=== PATIENT | male | born 2000 | race Caucasian/White ===

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

== ENCOUNTER 2018-09-20 20:06 | Emergency (ER) | payer OTHER, SELFPAY ==
[2018-09-20 20:10] VITALS: BP 122/82; PULSE 121; RESP 18; TEMP 36.8; O2SAT 96; BMI 20.3
--- NOTE | 2018-09-20 20:21 | XR_ITS ---
XR chest AP HISTORY: Posttraumatic pain ITS.REASON: syncope ORDERING PHYSICIAN: Delta Soares MD PATIENT AGE: 17 years COMPARISON: 03/29/2017 FINDINGS: The cardiomediastinal silhouette and pulmonary vascularity are within normal limits. Calcified granuloma is present in the left upper lobe medially. There is a nodular opacity also in the left upper lobe at the first interspace anteriorly measuring 5 mm which may represent a granuloma as well. No lobar consolidation or collapse. No acute bony findings. IMPRESSION: No acute findings
--- NOTE | 2018-09-20 20:21 | CT_ITS ---
CT head/brain wo con HISTORY: Blunt trauma with contusion or hematoma, headache, ITS.REASON: syncope ORDERING PHYSICIAN: Delta Soares MD PATIENT AGE: 17 years COMPARISON: None TECHNIQUE: Axial images were obtained. Brain and bone windows reviewed. All CT scans at the facility use one or more dose reduction, viz: automated exposure control, ma/kV adjustment per patient size (including targeted exams where dose is matched to indication, i.e. head), or iterative reconstruction technique. FINDINGS: No midline shift, mass effect, intracranial hemorrhage, hydrocephalus, or extra-axial fluid collection is evident. The calvarium has an unremarkable appearance. No mastoid effusion. No sinus air-fluid levels.. Mild soft tissue swelling in the frontal region extending toward the nasal bridge IMPRESSION: No acute intracranial findings.
--- NOTE | 2018-09-20 20:21 | XR_ITS ---
XR hip LT 2-3V w/pelvis HISTORY: ITS.REASON: pain ORDERING PHYSICIAN: Delta Soares MD PATIENT AGE: 17 years COMPARISON: None FINDINGS: No fracture or dislocation is evident. No significant degenerative change. No lytic or blastic change. Unremarkable soft tissues IMPRESSION: Negative hip
--- NOTE | 2018-09-20 20:30 | CT_ITS ---
CT CERVICAL SPINE WITHOUT CONTRAST CT RECONSTRUCTIONS HISTORY:Neck pain following injury, ORDERING PHYSICIAN: Delta Soares MD PATIENT AGE: 17 years COMPARISON: None Technique: All CT scans at the facility use one or more dose reduction, viz: automated exposure control, ma/kV adjustment per patient size (including targeted exams where dose is matched to indication, i.e. head), or iterative reconstruction technique PROCEDURE: Axial spiral CT scanning performed of the cervical spine beginning at the base of the skull and continuing to the upper T-spine. 3-D multiplanar reconstruction with 3-D manipulation of volumetric data set in image rendering was completed by the radiologist and/or technologist with the supervision of the radiologist on independent workstation. FINDINGS: No fracture nor subluxation is evident. Normal prevertebral soft tissues. Facets, neural foramen and vertebral bodies intact and unremarkable. Normal C1/C2 relationships. Apices of lungs are clear with no acute findings. IMPRESSION: Cervical spine intact with no fracture nor subluxation.
[2018-09-20 20:36] LABS: Microscopic, Urine URINE MICROSCOPIC (MICROSCOPIC)
[2018-09-20 20:41] LABS: Basophils # 0.1 K/mm3 (0-0.2); Basophils % 0.9 % (0.1-2.0); Eosinophils # 0.2 K/mm3 (0.0-0.4); Eosinophils % 1.9 % (0.1-12.0); Hematocrit 49.9 % (42.0-52.0); Hemoglobin 16.4 g/dL (14.1-18.0); Lymphocytes # 3.9 K/mm3 (0.7-4.5); Lymphocytes % 47.6 % (10-50); Mean Corpuscular HGB Conc 32.8 g/dL (31.8-35.4); Mean Corpuscular Hemoglobin 28.2 pg (27.0-31.2); Mean Corpuscular Volume 85.9 fl (80-94); Mean Platelet Volume 7.6 fl (7.4-10.4); Monocytes # 0.5 K/mm3 (0.1-1.0); Monocytes % 6.6 % (1.7-9.3); Neutrophils # 3.5 K/mm3 (1.8-7.8); Neutrophils % 43.1 % (37.0-80.0); Platelet Count 251 K/mm3 (142-424); Red Blood Count 5.81 M/mm3 (4.60-6.20); Red Cell Distribution Width 12.9 % (11.5-17.5); White Blood Count 8.1 K/mm3 (4.5-13.0)
[2018-09-20 20:48] LABS: Alanine Aminotransferase 23 U/L (12-78); Albumin Level 4.2 gm/dL (3.4-5.0); Albumin/Globulin Ratio 1.1 (1.1-1.8); Alkaline Phosphatase 131 U/L (46-116); Anion Gap 17.8 mEq/L (5-15); Aspartate Amino Transferase 16 U/L (15-37); Bilirubin,Total 0.5 mg/dL (0.2-1.0); Blood Urea Nitrogen 9 mg/dL (7-18); Calcium 9.2 mg/dL (8.5-10.1); Carbon Dioxide 25 mmol/L (21.0-32.0); Chloride 104 mmol/L (98-107); Creatine Kinase 96 U/L (39-308); Creatinine Clearance Estimated 130 mL/min (50-200); Creatinine,Serum 0.88 mg/dL (0.70-1.30); Estimated Glomerular Filt Rate 112 ml/min (>60); GFR (African American) 135 ML/MIN (>60); Globulin 3.7 gm/dl (1.3-3.2); Glucose 85 mg/dL (74-106); Potassium 3.8 mmoL/L (3.5-5.1); Sodium 143 mmol/L (136-145); Total Protein,Serum 7.9 gm/dL (6.4-8.2)
[2018-09-20 20:49] LABS: Amphetamine/Metha Screen,Urine Negative ng/mL (<1000); Barbiturates Screen,Urine Negative ng/mL (<200); Benzodiazepines Screen,Urine Negative ng/mL (<200); Cannabinoid Screen,Urine Negative ng/mL (<50); Cocaine Screen,Urine Negative ng/mL (<300); Methadone Screen,Urine Negative ng/mL (<300); Opiate Screen,Urine Negative ng/mL (<300); Phencyclidine Screen,Urine Negative ng/mL (<25)
[2018-09-20 20:56] LABS: Appearance,Urine CLEAR (Clear); Bilirubin,Urine Negative (Negative); Blood, Urine Negative (Negative); Color,Urine YELLOW (Yellow); Glucose,Urine (UA) Negative (Negative); Ketones,Urine Negative (Negative); Leukocyte Esterase,Urine Negative (Negative); Nitrate,Urine Negative (Negative); Protein,Urine Negative (Negative)
[2018-09-20 21:07] VITALS: BP 105/69; PULSE 108; RESP 17; O2SAT 98
[2018-09-20 21:22] LABS: Bacteria,Urine Trace /lpf; WBC,Urine Occasional #/hpf (0-3)
[2018-09-20 22:00] VITALS: BP 106/60; PULSE 85; O2SAT 97
[2018-09-20 23:17] VITALS: BP 110/76; PULSE 75; RESP 18; O2SAT 96
--- NOTE | 2018-09-20 23:26 | HMH.EDSYNC ---
ED Disposition Clinical Impression: Vasovagal syncope Disposition: Home, Self-Care Condition on Discharge: Good Instructions: DI for Syncope in Adults (Fainting) Additional Instructions: fluids and see pcp for follow up Referrals: Delta Soares MD [Primary Care Provider] - - Critical Care Critical Care Time: No Attestation: On 09/20/18, the high probability of a clinically significant, sudden or life threatening deterioration of the following system(s) required my full and direct attention, intervention and personal management. The time I documented below is in addition to time spent performing reported procedures but includes the following listed in this critical care notation. Medical Decision Making - Medical Records Medical records reviewed: Yes: I reviewed the patient's medical records. - Lalito Inquiry Pt receiving controlled substance: No Vital Signs: 09/20/18 20:10 09/20/18 21:07 09/20/18 22:00 Temperature 98.2 F Temperature Source Oral Pulse Rate [Right Brachial] 121 H 108 H 85 Respiratory Rate 18 17 Blood Pressure [Right Arm] 122/82 105/69 L 106/60 L Blood Pressure Mean [Right Arm] 95 81 75 Blood Pressure Source [Right Arm] Automatic Cuff Automatic Cuff Automatic Cuff Blood Pressure Position [Right Arm] Sitting Supine Supine 02 Sat by Pulse Oximetry 96 98 97 Oxygen Delivery Method Room Air Room Air Room Air 09/20/18 23:17 Temperature Temperature Source Pulse Rate [Right Brachial] 75 Respiratory Rate 18 Blood Pressure [Right Arm] 110/76 Blood Pressure Mean [Right Arm] 87 Blood Pressure Source [Right Arm] Automatic Cuff Blood Pressure Position [Right Arm] Sitting 02 Sat by Pulse Oximetry 96 Oxygen Delivery Method Room Air - Lab Data Lab results reviewed: Yes: I reviewed the patient's lab results. Lab Results 09/20/18 20:20: WBC 8.1, RBC 5.81, Hgb 16.4, Hct 49.9, MCV 85.9, MCH 28.2, MCHC 32.8, RDW 12.9, Plt Count 251, MPV 7.6, Neut % (Auto) 43.1, Lymph % (Auto) 47.6, [place] % (Auto) 6.6, Eos % (Auto) 1.9, Baso % (Auto) 0.9, Neut # (Auto) 3.5, Lymph # (Auto) 3.9, [place] # (Auto) 0.5, Eos # (Auto) 0.2, Baso # (Auto) 0.1 09/20/18 20:20: Sodium 143, Potassium 3.8, Chloride 104, Carbon Dioxide 25, Anion Gap 17.8 H, BUN 9, Creatinine 0.88, Estimated Creat Clear 130, Estimated GFR 112, Est GFR ( Amer) 135, Glucose 85, Calcium 9.2, Total Bilirubin 0.5, AST 16, ALT 23, Alkaline Phosphatase 131 H, Total Creatine Kinase 96, Total Protein 7.9, Albumin 4.2, Globulin 3.7 H, Albumin/Globulin Ratio 1.1 09/20/18 20:20: Urine Opiates Screen Negative, Urine Methadone Screen Negative, Ur Barbituates Screen Negative, Ur Phencyclidine Scrn Negative, Ur Amphetamines Screen Negative, U Benzodiazepines Scrn Negative, Urine Cocaine Screen Negative, U Marijuana (THC) Screen Negative 09/20/18 20:35: Urine Color Yellow, Urine Appearance Clear, Urine pH 6.0, Ur Specific [place] 1.020, Urine Protein Negative, Urine Glucose (UA) Negative, Urine Ketones Negative, Urine Blood Negative, Urine Nitrate Negative, Urine Bilirubin Negative, Urine Urobilinogen 1.0, Ur Leukocyte Esterase Negative, Urine WBC Occasional, Ur Squamous Epith Cells 10-20, Urine Bacteria Trace Result diagrams: 09/20/18 20:20 09/20/18 20:20 Orders (Tests/Meds): ED MEDICATIONS Generic Name Dose Route Start Last Admin Trade Name Freq PRN Reason Stop Dose Admin Sodium Chloride 1,000 mls @ 999 mls/hr 09/20/18 20:30 09/20/18 21:08 Sod Chlor 0.9% 1000ml Bag IV 09/20/18 21:30 999 mls/hr .[id number] NEY Administration Discontinued Medications Generic Name Dose Route Start Last Admin Trade Name Freq PRN Reason Stop Dose Admin Ketorolac Tromethamine 30 mg 09/20/18 20:24 09/20/18 21:08 Toradol 30mg/Ml Vial IV 09/20/18 20:25 30 mg ONCE ONE Administration ORDERS Category Date Time Status CT cervical spine wo con Stat Cat Scan 09/20/18 20:[address] head/brain wo con Stat Cat Scan 09/20/18 20:21 Taken XR
--- NOTE | 2018-09-20 23:30 | ED_ITS ---
ED Disposition Clinical Impression: Vasovagal syncope Disposition: Home, Self-Care Condition on Discharge: Good Instructions: DI for Syncope in Adults (Fainting) Additional Instructions: fluids and see pcp for follow up Referrals: Delta Soares MD [Primary Care Provider] - - Critical Care Critical Care Time: No Attestation: On 09/20/18, the high probability of a clinically significant, sudden or life threatening deterioration of the following system(s) required my full and direct attention, intervention and personal management. The time I documented below is in addition to time spent performing reported procedures but includes the follow ing listed in this critical care notation. Medical Decision Making - Medical Records Medical records reviewed: Yes: I reviewed the patient's medical records. - Lalito Inquiry Pt receiving controlled substance: No Vital Signs: 09/20/18 20:10 09/20/18 21:07 09/20/18 22:00 Temperature 98.2 F Temperature Source Oral Pulse Rate [Right Brachial] 121 H 108 H 85 Respiratory Rate 18 17 Blood Pressure [Right Arm] 122/82 105/69 L 106/60 L Blood Pressure Mean [Right Arm] 95 81 75 Blood Pressure Source [Right Arm] Automatic Cuff Automatic Cuff Automatic Cuff Blood Pressure Position [Right Arm] Sitting Supine Supine 02 Sat by Pulse Oximetry 96 98 97 Oxygen Delivery Method Room Air Room Air Room Air 09/20/18 23:17 Temperature Temperature Source Pulse Rate [Right Brachial] 75 Respiratory Rate 18 Blood Pressure [Right Arm] 110/76 Blood Pressure Mean [Right Arm] 87 Blood Pressure Source [Right Arm] Automatic Cuff Blood Pressure Position [Right Arm] Sitting 02 Sat by Pulse Oximetry 96 Oxygen Delivery Method Room Air - Lab Data Lab results reviewed: Yes: I reviewed the patient's lab results. Lab Results 09/20/18 20:20: WBC 8.1, RBC 5.81, Hgb 16.4, Hct 49.9, MCV 85.9, MCH 28.2, MCHC 32.8, RDW 12.9, Plt Count 251, MPV 7.6, Neut % (Auto) 43.1, Lymph % (Auto) 47.6, [place] % (Auto) 6.6, Eos % (Auto) 1.9, Baso % (Auto) 0.9, Neut # (Auto) 3.5, Lymph # (Auto) 3.9, [place] # (Auto) 0.5, Eos # (Auto) 0.2, Baso # (Auto) 0.1 09/20/18 20:20: Sodium 143, Potassium 3.8, Chloride 104, Carbon Dioxide 25, Anion Gap 17.8 H, BUN 9, Creatinine 0.88, Estimated Creat Clear 130, Estimated GFR 112, Est GFR ( Amer) 135, Glucose 85, Calcium 9.2, Total Bilirubin 0.5, AST 16, ALT 23, Alkaline Phosphatase 131 H, Total Creatine Kinase 96, Total Protein 7.9, Albumin 4.2, Globulin 3.7 H, Albumin/Globulin Ratio 1.1 09/20/18 20:20: Urine Opiates Screen Negative, Urine Methadone Screen Negative, Ur Barbituates Screen Negative, Ur Phencyclidine Scrn Negative, Ur Amphetamines Screen Negative, U Benzodiazepines Scrn Negative, Urine Cocaine Screen Negative, U Marijuana (THC) Screen Negative 09/20/18 20:35: Urine Color Yellow, Urine Appearance Clear, Urine pH 6.0, Ur Specific [place] 1.020, Urine Protein Negative, Urine Glucose (UA) Negative, Urine Ketones Negative, Urine Blood Negative, Urine Nitrate Negative, Urine Bilirubin Negative, Urine Urobilinogen 1.0, Ur Leukocyte Esterase Negative, Urine WBC Occasional, Ur Squamous Epith Cells 10-20, Urine Bacteria Trace Result diagrams: 09/20/18 20:20 09/20/18 20:20 Orders (Tests/Meds):
[2018-09-20 23:37] VITALS: BP 110/67; PULSE 80; RESP 16; TEMP 36.8; O2SAT 98
== END 2018-09-20 23:38 | disposition home or self-care (01) ==
PROVIDERS: Emergency Provider Emergency Medicine; PCP Emergency Medicine
DX: R55 Syncope and collapse (principal); F17.210 Nicotine dependence, cigarettes, uncomplicated; Z88.0 Allergy status to penicillin
CPT/HCPCS: 70450; 71045; 72125; 73502; 80053; 80305; 81001; 82550; 85025; 93005; 96365; 96375; 99284

== ENCOUNTER → 2019-10-15 14:13 | Outpatient (CLI) | payer OTHER, SELFPAY ==
[2019-10-15 14:28] LABS: Basophils # 0.1 K/mm3 (0-0.2); Basophils % 0.6 % (0.1-2.0); Eosinophils # 0.3 K/mm3 (0.0-0.4); Eosinophils % 2.5 % (0.1-12.0); Hematocrit 48.3 % (42.0-52.0); Hemoglobin 16.5 g/dL (14.1-18.0); Lymphocytes # 3.6 K/mm3 (0.7-4.5); Lymphocytes % 25.7 % (10-50); Mean Corpuscular HGB Conc 34.1 g/dL (31.8-35.4); Mean Platelet Volume 9.1 fl (7.4-10.4); Monocytes # 0.9 K/mm3 (0.1-1.0); Monocytes % 6.2 % (1.7-9.3); Platelet Count 220 K/mm3 (142-424); Red Blood Count 5.31 M/mm3 (4.60-6.20); Red Cell Distribution Width 13.1 % (11.5-17.5); White Blood Count 13.9 K/mm3 (4.5-13.0)
[2019-10-15 14:36] LABS: Chloride 101 mmol/L (98-107); Sodium 140 mmol/L (136-145)
[2019-10-15 14:37] LABS: Potassium 4.1 mmoL/L (3.5-5.1)
[2019-10-15 14:39] LABS: Alanine Aminotransferase 27 U/L (12-78); Albumin Level 4.6 g/dl (3.5-5.0); Alkaline Phosphatase 118 U/L (38-126); Anion Gap 15.1 mEq/L (5-15); Aspartate Amino Transferase 28 U/L (17-59); Bilirubin,Total 0.3 mg/dl (0.2-1.3); Blood Urea Nitrogen 14 mg/dl (9-20); Carbon Dioxide 28 mmol/L (22.0-30.0); Cholesterol 167 mg/dl (140-200); Estimated Glomerular Filt Rate 144 ml/min (>60); GFR (African American) 174 ML/MIN (>60); Total Protein,Serum 7.4 g/dl (6.3-8.2); Triglycerides 196 mg/dl (30-150); VLDL Cholesterol 39 mg/dL (0-40)
[2019-10-15 14:40] LABS: Calcium 9.6 mg/dl (8.4-10.2); Chol/HDL Ratio 3.7 (1-3.5); Glucose 95 mg/dl (74-100); HDL Cholesterol 45 mg/dl (40-60)
[2019-10-15 15:10] LABS: Thyroid Stimulating Hormone 3.67 uIU/mL (0.465-4.68)
[2019-10-15 18:08] LABS: Albumin/Globulin Ratio 1.6 (1.1-1.8); Globulin 2.8 g/dL (1.3-3.2)
[2019-10-22 08:40] LABS: 1,25 Dihydroxy Vitamin D 49 pg/mL (.); 1,25-Dihydroxy, Vitamin D-2 <10 pg/mL (.); 1,25-Dihydroxy, Vitamin D-3 49 pg/mL (.)
== END ==
PROVIDERS: Visit Provider Emergency Medicine
DX: Z00.00 Encounter for general adult medical examination without abnormal findings (principal)
CPT/HCPCS: 80053; 80061; 82652; 84436; 84443; 85025

== ENCOUNTER 2020-01-26 19:02 | Emergency (ER) | payer OTHER, SELFPAY ==
[2020-01-26 19:03] VITALS: BP 105/63; PULSE 83; RESP 16; TEMP 37.3; O2SAT 100; BMI 19.1
--- NOTE | 2020-01-26 19:25 | HMH.EDEXTP ---
ED Disposition Clinical Impression: Laceration of right thumb without complication Qualifiers: Encounter type: initial encounter Qualified Code(s): S61.011A - Laceration without foreign body of right thumb without damage to nail, initial encounter Disposition: Home, Self-Care Condition on Discharge: Good Instructions: DI for Laceration Repair Referrals: Delta Soares MD [Primary Care Provider] - - Critical Care Critical Care Time: No Attestation: On 01/26/20, the high probability of a clinically significant, sudden or life threatening deterioration of the following system(s) required my full and direct attention, intervention and personal management. The time I documented below is in addition to time spent performing reported procedures but includes the following listed in this critical care notation. Medical Decision Making - Medical Records Medical records reviewed: Yes: I reviewed the patient's medical records. - Lalito Inquiry Pt receiving controlled substance: No Vital Signs: 01/26/20 19:03 Temperature 99.2 F Temperature Source Oral Pulse Rate [Left Radial] 83 Respiratory Rate 16 Blood Pressure [Left Arm] 105/63 L Blood Pressure Mean [Left Arm] 77 Blood Pressure Source [Left Arm] Automatic Cuff Blood Pressure Position [Left Arm] Sitting 02 Sat by Pulse Oximetry 100 Oxygen Delivery Method Room Air Medical Decision Narrative: 19-year-old male presented to the emergency department with a superficial laceration to his right thumb. Patient did not sustain any other injuries. Will be thoroughly irrigated and cleaned. Dermabond will be applied. Patient is to follow-up with PCP. Given strict return precautions. Verbalized understanding. Extremity Problem HPI - General Chief complaint: Extremity Injury, Upper Stated complaint: AO [id number] @1830 lac to R thumb Time Seen by Provider: 01/26/20 19:05 Mode of Arrival: Ambulatory Limitations: No Limitations Description of Symptoms (Recalled from ER Triage Doc. by RN): Pt cut this right thumb w/ exacto knife. - History of Present Illness HPI Narrative: 19-year-old male presented to the emergency department after sustaining a laceration to his right thumb. Patient states that he was cutting some plastic with a razor blade when it slipped and caught his thumb. He did have some bleeding. Patient applied direct pressure and it stopped the bleeding. Patient is up-to-date on tetanus immunization. Denies any other injuries. Has good range of motion. - Related Data Home Medications Medication Instructions Recorded Confirmed No Known Home Medications 04/25/17 10/15/19 Allergies Allergy/AdvReac Type Severity Reaction Status Date / Time azithromycin [AZITHROMYCIN] Allergy Unknown Verified 10/15/19 10:45 Fish Containing Products Allergy Unknown Verified 10/15/19 10:45 [FISH CONTAINING PRODUCTS] Penicillins [PENICILLINS] Allergy Unknown Verified 10/15/19 10:45 pollen extracts Allergy Unknown Verified 10/15/19 10:45 [POLLEN EXTRACTS] EGGS (FOOD) Allergy Mild S-SWELLS-OR Uncoded 10/15/19 10:45 AL/THROAT BEE VENOM PROTEIN (HONEY BEE) Allergy Unknown Uncoded 10/15/19 10:45 CAT DANDER Allergy Unknown Uncoded 10/15/19 10:45 [facility] History - Hepatitis A Screen Drug use history?: No High risk sexual behaviors?: No History of sexually transmitted infection?: No Currently employed?: No Childcare worker?: No Do you have indoor plumbing?: Yes Do you have electricity?: Yes Attestation statement:: This patient has been screened for Hepatitis A risk factors. I have reviewed the patient's past medical history: Yes Medical History: Reports:: Asthma Denies:: Cancer, Diabetes Mellitus Type 1, Diabetes Mellitus Type 2, MRSA Amputation: No Fractures: Yes (left wrist) - Social History Smoking Status: Current every day smoker Tobacco Type: cigarettes # Packs/Day (cigarettes): 1 Alcohol Intake: never Alcohol Intake Frequency::
[2020-01-26 19:32] VITALS: BP 105/63; PULSE 83; RESP 16; TEMP 37.3; O2SAT 100
== END 2020-01-26 19:35 | disposition home or self-care (01) ==
PROVIDERS: Emergency Provider Emergency Medicine; PCP Emergency Medicine
DX: S61.011A Laceration without foreign body of right thumb without damage to nail, initial encounter (principal); W26.0XXA Contact with knife, initial encounter; Y92.89 Other specified places as the place of occurrence of the external cause; F17.210 Nicotine dependence, cigarettes, uncomplicated; J45.909 Unspecified asthma, uncomplicated; Z88.0 Allergy status to penicillin
CPT/HCPCS: 12002; 99282

== ENCOUNTER → 2020-01-29 12:28 | Outpatient (CLI) | payer OTHER, SELFPAY | PROVIDERS: Visit Provider Obstetrics & Gynecology | DX: Z01.83 Encounter for blood typing (principal) | CPT/HCPCS: 36415; 86900; 86901 ==